=== PATIENT | female | born 1965 | race Caucasian/White ===

== ENCOUNTER → 2021-01-02 | Outpatient (CLI) | payer OTHER ==
--- NOTE | 2021-01-02 16:20 | REP ---
INDICATION: RT ANKLE TIBAL TENDON TEAR. COMPARISON: None TECHNIQUE: Sagittal fat suppressed T2 and proton density. Coronal proton density, fat suppressed proton density and STIR. Axial fat suppressed proton density and T1. FINDINGS: The tendons of the tibialis anterior, extensor hallucis, and extensor digitorum muscles are intact and of normal appearing low signal throughout. The tendons of the tibialis posterior, flexor digitorum, and flexor hallucis muscles are intact and of normal appearing low signal throughout. The peroneal tendons are intact and of normal appearing low signal throughout. The Achilles tendon is intact and of normal appearing low signal throughout. There is no frankly abnormal peritendinous fluid identified. The anterior and posteroinferior tibiofibular ligaments are intact. The anterior and posterior talofibular ligaments are intact. The calcaneofibular ligament is intact the ligaments within the sinus tarsi are within normal limits, however, the sinus tarsi adipose signal is nearly completely obliterated with intermediate T1 signal. There is abnormal T2 hyper signal seen in the lateral talar process with early cystic degenerative change. There is a focus of T1 and T2 prolongation seen within the os calcis deep to the angle of [place] suggestive of early cystic degenerative change. There is a rather marked heel valgus deformity. There is mild T2 hyper signal seen in the os calcis plantar surface within a plantar heel spur. The plantar aponeurosis is mildly thickened at that insertion, however, the thickening is smooth rather than nodular and there is no concomitant abnormal T2 hyper signal within plantar aponeurosis. IMPRESSION: 1. There is lateral hindfoot impingement as described above. 2. Edema within a plantar calcaneal heel spur and mild chronic thickening of the plantar aponeurosis at that level. 3. 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 4. Other findings as described above. <Electronically signed by Trevor Morales > 01/02/21 [id number]
== END ==
LOC: M PLAIMG 15:29
PROVIDERS: ATTEND Podiatrist
DX: G57.51 Tarsal tunnel syndrome, right lower limb (principal); R60.9 Edema, unspecified

== ENCOUNTER → 2024-04-19 | Outpatient (CLI) | payer OTHER | LOC: M PLAIMG 14:31 | PROVIDERS: ATTEND Internal Medicine | DX: J20.9 Acute bronchitis, unspecified (principal) ==